=== PATIENT | female | born 1950 | race Caucasian/White ===

== ENCOUNTER → 2017-05-20 | Day surgery (SDC) | payer MEDICARE, OTHER ==
[~2017-05-20] VITALS: Ht 162.6 cm; Wt 62.6 kg
[~2017-05-20] MED LIST: ACID1TAB2 PO; BISM262T15 PO; CALC-786 PO; CHOL200078 PO; DIPH60LI PO; LISI-571 PO; LOM PO; LOPE-147 PO; MAGN100T5 PO; METF500T4 PO; METR500T19 PO; OMEP20CA11 PO; SIMV10TA4 PO; Sodium Chloride LOK Flush 10 mL Syringe IV PRN; fentaNYL-PF 50 mCg/mL 2 mL Inj IVPUSH PRN
[2017-05-20 09:45] VITALS: BP 125/77; PULSE 68; RESP 14; O2SAT 98
[2017-05-20] MEDS: 0.9% Sodium Chloride 1,000 ML IV SCH ×2 (10:17→10:26)
[2017-05-20 10:33] VITALS: BP 100/60; PULSE 82; RESP 13; O2SAT 97
[2017-05-20 10:43] VITALS: BP 108/65; PULSE 77; RESP 12; O2SAT 97
[2017-05-20 10:53] VITALS: BP 100/60; PULSE 68; RESP 14; O2SAT 96
--- NOTE | 2017-05-20 20:12 | ENDO ---
[address] [address] ENDOSCOPY PROCEDURE PATIENT: RANDY GARCIA : 1950 MR#: [id number] ADMIT: 05/20/2017 JOB ID: [id number] PROCEDURE: Colonoscopy. INDICATION: Change in bowel habits. Patient's ASA classification is II. Mallampati score is II. MEDICATIONS: Versed at 6 mg, fentanyl 125 mcg. INSTRUMENT USED: PCF-H180AL. Prep quality was fair. PROCEDURE DETAILS: After informed consent was obtained, the patient was brought into the GI suite, where she was placed on oxygen via nasal cannula and monitored with continuous pulse oximeter, telemetry, and blood pressure monitoring. A time-out was performed. Then, she was placed in a left lateral decubitus position and medications were administered for sedation. Digital rectal exam was performed, which was unremarkable. The colonoscope was then inserted into the rectum and advanced under direct visualization to the cecum, which was identified by the presence of the ileocecal valve and appendiceal orifice. Once the cecum was reached, colonoscope was withdrawn back into the rectum as the mucosa and lumen were examined. In the rectum, retroflexion was performed. Following retroflexion, remaining air in the rectum was suctioned, and procedure was completed. FINDINGS: 1. In the transverse colon, there was a diminutive polyp that was removed with cold biopsy forceps. 2. The mucosa otherwise from rectum to terminal ileum appeared unremarkable. Multiple random biopsies were obtained throughout the TI and entire colon. IMPRESSION: Transverse colon polyp. RECOMMENDATIONS: 1. Await biopsy results. 2. Follow up in GI clinic. COMPLICATIONS: None. ESTIMATED BLOOD LOSS: Less than 5 mL.
--- NOTE | 2017-05-22 13:08 | PATH ---
SURGICAL PATHOLOGY Attending Physician:Chelsi Arevalo CASE STATUS: Signed Out PATIENT NAME: RANDY GARCIA PID: [id number] : 1950 DATE COLLECTED:05/20/2017 16:36 SPECIMEN: 1: Colon, Polyp 2: Ileum, Biopsy 3: Colon, Biopsy CLINICAL HISTORY: 1). TRANSVERSE COLON POLYP 2). TERMINAL ILEUM BIOPSY 3). RANDOM COLON BIOPSY FINAL DIAGNOSIS: 1. Transverse Colon Polyp, Biopsy: Colonic mucosa with no diagnostic abnormality consistent with polypoid redundancy. Additional subsections examined. 2. Terminal Ileum, Biopsy: Ileal mucosa with no diagnostic abnormality. Negative for active inflammation, granulomata, dysplasia or malignancy. 3. Random Colon, Biopsies: Colonic mucosa with no diagnostic abnormality. Negative for active or microscopic colitis. Negative for granulomata, dysplasia or malignancy. ICD10: R19.4 GROSS DESCRIPTION: The specimen is received in three formalin filled containers labeled with the patient's name. 1). The specimen is labeled "transverse colon polyp" and consists of 2 portions of tissue which aggregate to 0.3 x 0.3 x 0.2 CM. The specimen is entirely submitted in cassette 1A. 2). The specimen is labeled "terminal ileum" and consists of 2 portions of tissue which aggregate to 0.3 x 0.3 x 0.2 CM. The specimen is entirely submitted in cassette 2A. 3). The specimen is labeled "random colon" and consists of multiple portions of tissue which aggregate to 0.6 x 0.6 x 0.3 CM. The specimen is entirely submitted in cassette 3A. 05/20/2017DC ICD-9 CODES: CPT CODES: 1: 79657 2: 05661 3: 39167 Electronically Signed Out Jose Peguero MD, Ph.D. [facility] Pathology [facility], [place] [address] Technical component performed at [facility], [facility] [address], [place], [address]
== END | disposition home or self-care (01) ==
LOC: END 00:43
PROVIDERS: ATTEND Internal Medicine Gastroenterology
DX: R19.4 Change in bowel habit (principal); K63.5 Polyp of colon; Z87.891 Personal history of nicotine dependence
CPT/HCPCS: 45380; 99153; G0500; J2250; J3010; J7030